=== PATIENT | female | born 1975 | race Two or more races ===

== ENCOUNTER 2024-12-09 15:14 | Emergency (ER) | payer OTHER ==
[~2024-12-09] VITALS: Ht 160 cm; Wt 81.6 kg
[2024-12-09] MEDS ORDERED: CEFTRIAXONE SODIUM 2,000 MG VIAL ONE (17:10)
[2024-12-09] MEDS ORDERED: ACETAMINOPHEN WITH CODEINE 1 UDTAB TABLET PO ONE (17:15)
[2024-12-09] MEDS ORDERED: CEFTRIAXONE SODIUM 2,000 MG VIAL IV ONE (17:15)
== END 2024-12-09 19:09 | disposition home or self-care (01) ==
LOC: ER 15:14
DX: K04.7 Periapical abscess without sinus (principal)
CPT/HCPCS: 96365; 99282; J0696